=== PATIENT | male | born 1955 | race Asian ===

== ENCOUNTER 2019-04-16 08:12 | Day surgery (SDC) | payer OTHER | END 2019-04-16 09:28 | disposition home or self-care (01) | LOC: OR 08:12 | PROC: 3E0T3TZ Introduction of Destructive Agent into Peripheral Nerves and Plexi, Percutaneous Approach (ICD-10-PCS; principal; 2019-04-16) | DX: M25.561 Pain in right knee (principal); M17.11 Unilateral primary osteoarthritis, right knee | CPT/HCPCS: J2001 ==